=== PATIENT | male | born 1990 | race Asian ===

== ENCOUNTER 2024-04-06 20:15 | Emergency (ER) | payer OTHER ==
[~2024-04-06] VITALS: Ht 165.1 cm; Wt 77.0 kg
[2024-04-06 20:16] VITALS: O2SAT 100
[2024-04-06 20:27] VITALS: BP 121/81; PULSE 90; RESP 18; TEMP 36.9; O2SAT 100
== END 2024-04-06 23:37 | disposition left against medical advice (07) ==
LOC: ER 20:15
DX: F41.0 Panic disorder [episodic paroxysmal anxiety] (principal)
CPT/HCPCS: 71045; 80048; 83880; 84484; 93005; 99283; 99285